=== PATIENT | female | born 1985 | race Caucasian/White ===

== ENCOUNTER 2016-11-09 19:51 | Emergency (ER) | payer BC, OTHER ==
[~2016-11-09] VITALS: Ht 149.8 cm; Wt 83.0 kg
[~2016-11-09 19:51] MED LIST: ADIPEX-P37.5 MG PO; ATIVAN0.5 MG PO; BACTRIM DS 8001 TA1 PO; BACTRIM DS 8001 TAB PO; CIPRO500 MG PO; CIPROFLOXACIN500 MG PO; CLINDAMYCIN HC300 MG PO; DOXYCYCLINE HY100 M5 PO; DOXYCYCLINE100 M3 PO; HYDROCODONE BIT1 T11; HYDROCODONE BIT1 T11 PO; KEFLEX500 MG PO; METHYLPRED-DP4 MG PO; MOTRIN800 MG PO; NKHM; NORFLEX100 MG PO; PEPCID20 MG PO; PERCOCET 325 MG1 TA2 PO; SEPTRA DS 800 M1 TAB PO; SILVADENE1% TP; SKELAXIN800 MG PO; TRAMADOL HCL50 MG PO; TYLENOL W/CODEI1 TA2 PO; VICODIN 5/500 505 MG PO; VITAMIN D50000 I3 PO; VITAMIN D50000 IU PO; Vicodin 5/325 PO; ZOFRAN4 MG PO
[2016-11-09 20:18] VITALS: BP 151/88
[2016-11-09] MEDS ORDERED: ZANTAC 7575 M1 PO (20:19)
[2016-11-09] MEDS ORDERED: ONDANSETRON HYDR4 MG PO (20:19)
[2016-11-09] MEDS ORDERED: PHENTERMINE H37.5 M1 PO (20:20)
[2016-11-09] MEDS ORDERED: KEFLEX250 MG PO (22:02)
[2016-11-09] MEDS ORDERED: HYDROCODONE BIT1 T11 PO (22:02)
== END 2016-11-10 01:06 | disposition home or self-care (01) ==
LOC: ED 19:51
DX: M79.605 Pain in left leg (principal); Z98.51 Tubal ligation status; Z79.899 Other long term (current) drug therapy; Z88.6 Allergy status to analgesic agent

== ENCOUNTER 2016-12-27 21:42 | Emergency (ER) | payer BC, OTHER ==
[~2016-12-27] VITALS: Ht 149.8 cm; Wt 85.3 kg
[~2016-12-27 21:42] MED LIST changes: +KEFLEX250 MG PO; +ONDANSETRON HYDR4 MG PO; +PHENTERMINE H37.5 M1 PO; +ZANTAC 7575 M1 PO
[2016-12-27 21:49] VITALS: BP 137/75
== END 2016-12-27 23:53 | disposition home or self-care (01) ==
LOC: ED 21:42
DX: S00.83XA Contusion of other part of head, initial encounter (principal); Z88.6 Allergy status to analgesic agent; W10.9XXA Fall (on) (from) unspecified stairs and steps, initial encounter; Y93.89 Activity, other specified; Y92.9 Unspecified place or not applicable; Y99.9 Unspecified external cause status

== ENCOUNTER → 2019-12-13 | Outpatient (CLI) | payer SELFPAY | END | disposition home or self-care (01) | LOC: COVID19 11:00 | DX: R50.9 Fever, unspecified (principal); Z20.828 Contact with and (suspected) exposure to other viral communicable diseases ==

== ENCOUNTER → 2020-08-28 | Outpatient (CLI) | payer BC, OTHER ==
[~2020-08-28] MED LIST changes: +NAPROXEN250 MG PO; +TYLENOL325 M1 PO
[2020-08-28 09:56] LABS: BASO % 0.2 % (0.0-1.0); EOS # 0.1 10*3/uL (0.0-0.4); EOS % 0.7 % (1.0-4.0); HEMATOCRIT 37.2 % (37.0-47.0); LYMPH # 2.3 10*3/uL (1.3-4.4); LYMPH % 27.9 % (27.0-41.0); MEAN CELL VOLUME 86.3 fl (81.0-99.0); MEAN CORPUSCULAR HGB CONC 33.6 g/dl (33.0-37.0); MEAN PLATELET VOLUME 9.9 fl (9.6-12.3); MONO # 0.3 10*3/uL (0.1-1.0); MONO % 3.4 % (3.0-9.0); NEUT # 5.6 10*3/uL (2.3-7.9); NEUT % 67.6 % (47.0-73.0); PLATELET COUNT AUTOMATED 338 10*3/uL (130-400); RED BLOOD COUNT 4.31 10*6/uL (4.10-5.10); RED CELL DISTRI WIDTH 13.2 % (0-14.5); WHITE BLOOD COUNT 8.3 10*3/uL (4.8-10.8)
[2020-08-29 09:07] LABS: PROLACTIN 14.3 ng/mL (4.8-23.3)
[2020-08-30 19:06] LABS: TESTOSTERONE FREE, (DIRECT) 0.8 pg/mL (0.0-4.2)
== END | disposition home or self-care (01) ==
LOC: LAB 09:08
PROVIDERS: ATTEND Nurse Practitioner Women's Health
DX: L68.0 Hirsutism (principal); R53.83 Other fatigue; N93.9 Abnormal uterine and vaginal bleeding, unspecified

== ENCOUNTER → 2020-09-06 | Outpatient (CLI) | payer BC, OTHER | END | disposition home or self-care (01) | LOC: US 00:49 | PROVIDERS: ATTEND Nurse Practitioner Women's Health | DX: N93.9 Abnormal uterine and vaginal bleeding, unspecified (principal) ==

== ENCOUNTER 2020-11-09 09:12 | Emergency (ER) | payer BC, OTHER ==
[~2020-11-09 09:12] MED LIST changes: -NAPROXEN250 MG PO; -TYLENOL325 M1 PO
[2020-11-09 09:16] VITALS: BP 139/68
[2020-11-09] MEDS ORDERED: TYLENOL325 M1 PO (10:12)
[2020-11-09] MEDS ORDERED: NAPROXEN250 MG PO (10:12)
== END 2020-11-09 10:04 | disposition home or self-care (01) ==
LOC: ED 09:12
DX: S92.511A Displaced fracture of proximal phalanx of right lesser toe(s), initial encounter for closed fracture (principal); Z79.82 Long term (current) use of aspirin; Z79.899 Other long term (current) drug therapy; W01.190A Fall on same level from slipping, tripping and stumbling with subsequent striking against furniture, initial encounter; Y93.89 Activity, other specified; Y92.89 Other specified places as the place of occurrence of the external cause; Y99.8 Other external cause status

== ENCOUNTER → 2020-11-26 | Outpatient (CLI) | payer BC, OTHER ==
[~2020-11-26] MED LIST changes: +NAPROXEN250 MG PO; +TYLENOL325 M1 PO
== END | disposition home or self-care (01) ==
LOC: RAD 12:00
PROVIDERS: ATTEND Orthopaedic Surgery
DX: S92.511D Displaced fracture of proximal phalanx of right lesser toe(s), subsequent encounter for fracture with routine healing (principal); X58.XXXD Exposure to other specified factors, subsequent encounter

== ENCOUNTER → 2021-01-06 | Outpatient (CLI) | payer BC, OTHER | END | disposition home or self-care (01) | LOC: RAD 09:53 | PROVIDERS: ATTEND Orthopaedic Surgery | DX: S92.511K Displaced fracture of proximal phalanx of right lesser toe(s), subsequent encounter for fracture with nonunion (principal); X58.XXXD Exposure to other specified factors, subsequent encounter ==

== ENCOUNTER → 2021-01-24 | Outpatient (CLI) | payer BC, OTHER | END | disposition home or self-care (01) | LOC: LAB 06:49 | PROVIDERS: ATTEND Nurse Practitioner Primary Care | DX: R63.5 Abnormal weight gain (principal); R60.9 Edema, unspecified ==

== ENCOUNTER → 2021-01-27 | Outpatient (CLI) | payer BC, OTHER | END | disposition home or self-care (01) | LOC: ORTHO 14:56 | PROVIDERS: ATTEND Orthopaedic Surgery | DX: M77.31 Calcaneal spur, right foot (principal); S92.501D Displaced unspecified fracture of right lesser toe(s), subsequent encounter for fracture with routine healing; X58.XXXD Exposure to other specified factors, subsequent encounter ==

== ENCOUNTER 2021-08-20 02:31 | Emergency (ER) | payer BC, OTHER ==
[~2021-08-20] VITALS: Wt 88.5 kg
[2021-08-20 02:48] VITALS: BP 136/77
[2021-08-20 03:26] LABS: BASO % 0.1 % (0.0-1.0); EOS % 0.2 % (1.0-4.0); HEMATOCRIT 40.7 % (37.0-47.0); LYMPH # 1.2 10*3/uL (1.3-4.4); MEAN CELL VOLUME 86.6 fl (81.0-99.0); MEAN CORPUSCULAR HGB 28.7 pg (27.0-31.0); MEAN CORPUSCULAR HGB CONC 33.2 g/dl (33.0-37.0); MEAN PLATELET VOLUME 9.3 fl (9.6-12.3); MONO # 0.8 10*3/uL (0.1-1.0); MONO % 5.2 % (3.0-9.0); NEUT % 86.1 % (47.0-73.0); PLATELET COUNT AUTOMATED 357 10*3/uL (130-400); RED CELL DISTRI WIDTH 12.5 % (0-14.5); WHITE BLOOD COUNT 15.1 10*3/uL (4.8-10.8)
[2021-08-20 03:40] LABS: BUN 13 mg/dl (7-24); CHLORIDE 102 mmol/L (98-107); CREATININE 0.98 mg/dL (0.55-1.02); POTASSIUM 3.6 mmol/L (3.5-5.1); SODIUM 136 mmol/L (136-145)
== END 2021-08-20 06:16 | disposition home or self-care (01) ==
LOC: ED 02:31
PROVIDERS: Internal Medicine
DX: A41.9 Sepsis, unspecified organism (principal); H60.21 Malignant otitis externa, right ear; R65.20 Severe sepsis without septic shock; Z88.6 Allergy status to analgesic agent; Z79.899 Other long term (current) drug therapy

== ENCOUNTER → 2021-09-02 | Outpatient (CLI) | payer BC, OTHER | LOC: RAD 15:51 | PROVIDERS: ATTEND Orthopaedic Surgery | DX: M25.522 Pain in left elbow (principal) ==

== ENCOUNTER → 2022-05-12 | Outpatient (CLI) | payer BC | END | disposition home or self-care (01) | LOC: LAB 13:47 | PROVIDERS: ATTEND Nurse Practitioner | DX: R50.9 Fever, unspecified (principal); R07.0 Pain in throat ==